=== PATIENT | female | born 1995 | race Caucasian/White ===

== ENCOUNTER 2023-11-07 19:51 | Emergency (ER) | payer OTHER, BC ==
[~2023-11-07] VITALS: Ht 165.1 cm; Wt 100.0 kg
[2023-11-07 19:58] VITALS: BP 158/88; PULSE 90; RESP 16; TEMP 98.6; O2SAT 99
== END 2023-11-07 22:24 | disposition home or self-care (01) ==
LOC: ER 19:52
DX: S33.5XXA Sprain of ligaments of lumbar spine, initial encounter (principal); X58.XXXA Exposure to other specified factors, initial encounter; Y93.89 Activity, other specified; Y92.89 Other specified places as the place of occurrence of the external cause; Y99.8 Other external cause status
CPT/HCPCS: 72080; 99283